=== PATIENT | female | born 1970 | race Caucasian/White ===

== ENCOUNTER → 2023-11-08 13:56 | Outpatient (REF) | payer BC, SELFPAY | LOC: WDC 13:56 | PROVIDERS: ATTENDING PHYSICIAN Family Medicine | DX: Z12.31 Encounter for screening mammogram for malignant neoplasm of breast (principal) | CPT/HCPCS: 77063; 77067 ==

== ENCOUNTER 2024-03-14 06:25 | Day surgery (SDC) | payer BC, SELFPAY | END 2024-03-14 16:00 | disposition home or self-care (01) | LOC: GI 06:25 | PROVIDERS: ATTENDING PHYSICIAN Internal Medicine Gastroenterology | DX: Z12.11 Encounter for screening for malignant neoplasm of colon (principal); K57.30 Diverticulosis of large intestine without perforation or abscess without bleeding; K64.8 Other hemorrhoids | CPT/HCPCS: G0121 ==

== ENCOUNTER 2024-10-18 18:15 | Emergency (ER) | payer BC, SELFPAY ==
[2024-10-18 18:15] VITALS: BMI 38.2
[2024-10-18 18:32] VITALS: BP 169/95
[2024-10-18 19:37] LABS: ALT (SGPT) 43 U/L (0-35); AST (SGOT) 34 U/L (14-36); Albumin 5.0 g/dl (3.5-5.0); Alkaline Phosphatase 108 U/L (38-126); Blood Urea Nitrogen 14 mg/dl (7-17); Calcium 9.5 mg/dl (8.4-10.2); Carbon Dioxide 24 mmol/L (22-30); Chloride 106 mmol/L (98-107); Glucose 98 mg/dl (70-99); Lipase 88 U/L (23-300); Potassium 4.3 mmol/L (3.5-5.1); Sodium 140 mmol/L (135-145); Total Protein 8.1 g/dl (6.3-8.2); eGFR > 60.00
[2024-10-18 20:00] VITALS: BP 141/93
[2024-10-18 20:14] VITALS: BP 141/93
[2024-10-18] MEDS: NSS 1000 IV (20:20)
[2024-10-18 20:34] LABS: Urine Character Clear (Clear)
[2024-10-18 20:36] LABS: Hematocrit 41.1 % (37.0-47.0); Hemoglobin 14.1 g/dL (12.0-16.0); Mean Corp Hgb Conc. 34.3 g/dL (33.0-37.0); Mean Corpuscular Volume 88.0 fL (81.0-99.0); Nucleated Red Blood Cells % 0 %; Platelet Count 231 10^3/uL (130-400); Red Cell Dist. Width 12.7 % (11.5-14.5)
[2024-10-18 20:40] LABS: Urine Squamous Cell 21-25 /LPF (Few)
[2024-10-18 20:41] LABS: Urine Red Blood Cell 0-2 /HPF (0-2)
[2024-10-18 21:00] VITALS: BP 149/88
[2024-10-18 22:00] VITALS: BP 149/79
[2024-10-18] MEDS: COMPAZINE 10 MG IV (22:06)
[2024-10-18] MEDS: NSS 500 IV (22:06)
[2024-10-18 22:24] VITALS: BP 118/64
--- NOTE | 2024-10-18 23:14 | ED.GENMED ---
History of Present Illness
General
Chief Complaint: Abdominal Pain
Source: patient
Exam Limitations: none
Time Seen by Provider: 10/18/24 19:41
Nursing documentation reviewed up to this point in time: agreed with
History of Present Illness
History of Present Illness:
Patient to ED with complaint of upper abdominal pain, n/v. Symptoms started this afternoon. SHe was sent to ED by with concern for pancreatitis. Denies fever/chills. No history of current symptoms. To ED accompanied by family for eval
Past History
Past History
ED Past Medical History: None
Review of Systems
Review of Systems
Allergies reviewed?: Yes
All Other Systems: ROS reviewed and negative except as documented in HPI and ROS
Constitutional: Reports no symptoms
EENT: Reports no symptoms
Respiratory: Reports no symptoms
ABD/GI: Reports abdominal pain (upper abd. pain), nausea and vomiting
: Reports no symptoms
Musculoskeletal: Reports no symptoms
Skin: Reports no symptoms
Neurological: Reports no symptoms
Psychiatric: Reports no symptoms
Phy Exam
General Physical Exam
General Presentation: well appearing and no apparent distress
General age: appears stated age
General Skin: warm and dry
General Habitus: normal
Cardiovascular Exam
Cardiovascular Exam: regular rate/rhythm and no edema
Gastrointestinal Exam
Gastrointestinal Exam: normal bowel sounds, soft, no organomegaly, no pulsatile mass, non distended and no cva tenderness
Palpation: left upper quadrant: Moderate tenderness, left lower quadrant: No tenderness, right upper quadrant: Moderate tenderness and right lower quadrant: No tenderness
Musculoskeletal Exam
Musculoskeletal Exam: full ROM and neuro vasc intact
Skin Exam
Skin Exam: normal color, warm/dry and no rash
Psychiatric Exam
Psychiatric Exam: normal mood/affect
Course
Orders/Labs/Results
Orders:
Orders
10/18/24 19:06
Comprehensive Metabolic Panel Urgent
Lipase Urgent
10/18/24 20:10
Complete Blood Count/With Diff Urgent
10/18/24 20:20
0.9% Sodium Chloride 1000 ml [Nss] 1,000 ml IV BOLUS
10/18/24 20:21
Urinalysis Reflex To Culture Urgent
Date Specimen was Collected: 10/18/24
Time Specimen was Collected: 20:19
Urine Microscopic Reflex Cult Urgent
Urine Culture Urgent
CHARLY Source: U
Specimen Description:
Date Specimen was Collected: 10/18/24
Time Specimen was Collected: 20:19
10/18/24 21:41
US Abdomen Complete/Upper Urgent
Comment:
Reason For Exam: upper abd. pain
10/18/24 21:43
Prochlorperazine [Compazine] 10 mg IV NOW STA
10/18/24 21:44
0.9% Sodium Chloride 500 ml [Nss] 500 ml IV BOLUS
10/18/24 22:32
CT Abd/pelvis W Iv Cont Urgent
Comment:
Reason For Exam: upper abd pain, vomiting
Abnormal Lab Results
10/18/24 10/18/24 10/18/24
19:06 20:10 20:21
WBC 12.6 H 10^3/uL
(4.8-10.8)
Abs Immat Gran (auto) 0.1 H 10^3/uL
(0-0.05)
Absolute Neuts (auto) 10.4 H 10^3/uL
(1.4-6.5)
Absolute Lymphs (auto) 0.9 L 10^3/uL
(1.2-3.4)
Absolute Eos (auto) 0.8 H 10^3/uL
(0-0.7)
Neutrophils % 83.0 H %
(42.2-75.2)
Lymphocytes % 6.8 L %
(20.5-51.1)
Eosinophils % 6.1 H %
(0-6)
ALT 43 H U/L
(0-35)
Urine Ketones 3+ A
(Negative)
Urine Bacteria (Reflex) Moderate A
(Negative)
Urine Albumin (Reflex) 2+ A
(Neg - Trace)
10/18/24 20:10
10/18/24 19:06
Vital Signs
Initial and Last Documented VS:
Initial Vital Signs
Temp Pulse Resp BP Pulse Ox
98.5 F 75 18 169/95 100
10/18/24 18:32 10/18/24 18:32 10/18/24 18:32 10/18/24 18:32 10/18/24 18:32
Last Documented Vital Signs
Temp Pulse Resp BP Pulse Ox
98.1 F 61 11 118/64 91
10/18/24 20:00 10/18/24 22:30 10/18/24 22:00 10/18/24 22:24 10/18/24 22:30
*Radiology
Radiology exam reviewed: radiology read reviewed
*Pulse Oximetry
SaO2: 91
Oxygen Mode of Delivery: Room air
Patient hypoxic: no
*Critical Care Note
Total Time (30-74mins, 75-104mins- exclusive of procedures): Not Applicable
Update Note
Update Note:
Patient to ED with complait of sudden onset upper abd. pain, n/v. Symptoms started this afternoon. Given IVF while in ED Labs reviewed, no cncerning findings. US and CT results reviewed. CT concerning for possible enteritis. Discussed fidings
with patient and family Will recommend clear liquids x 24 hours and then to advance as tolerated. She was given instructions on s/s to return to ED and she is agreeable to plan.
ED Attending Note
-
Portions of this chart may have been created with voice recognition software.� Occasional wrong word or��sound alike� substitutions may have occurred due to the inherent limitations of voice recognition software.
Discharge Plan
Departure
Patient Disposition: Home (Routine Discharge)
Date of Disposition: 10/18/24
Time of Disposition: 23:12
Patient with high blood pressure during this ER visit?: No
Condition: Good
Covid-19: Not Applicable
Discharge Problem:
Enteritis
Instructions: Clear Liquid Diet, Abdominal Pain
Prescriptions:
No Action
latanoprost [Xalatan] 2.5 ML drops
1 drp BOTH EYES HS
Zepbound 10 mg/0.5 mL Pen Injector
10 mg SC QWEEK
Referrals:
Qasim Hayes DO [Family Provider, Family Practice] - Follow up in 2-3 days
Stand Alone Forms: Return to Work
Activity Restrictions/Additional Instructions:
Return to the emergency department immediately for any changes in/worsening of your symptoms
Interventions
Interventions:
*Risk Screen - Suicide Last Done: 10/18/24 20:25
*General Assessment Last Done: 10/18/24 20:25
*Neglect/Abuse Screening Last Done: 10/18/24 20:25
*ED- Fall Risk Assessment Last Done: 10/18/24 20:25
*ED COVID-19 Vaccine History Last Done: 10/18/24 18:32
VQ-Wwraqa-Kbvsucnlsi Assessment Last Done: 10/18/24 20:25
Discharge Date and Time
Print Language: AZERI
== END 2024-10-19 00:03 | disposition home or self-care (01) ==
LOC: EMR 18:15
PROVIDERS: Student in an Organized Health Care Education/Training Program; EMERGENCY PHYSICIAN Emergency Medicine; FAMILY PHYSICIAN Family Medicine
DX: K52.9 Noninfective gastroenteritis and colitis, unspecified (principal); F41.9 Anxiety disorder, unspecified; Z88.5 Allergy status to narcotic agent; Z88.8 Allergy status to other drugs, medicaments and biological substances; Z91.048 Other nonmedicinal substance allergy status
CPT/HCPCS: 99285; 96361; 96374; 74177; 76700; 80053; 81003; 81015; 83690; 85025; 87086; Q9967